=== PATIENT | male | born 1950 | race Caucasian/White ===

== ENCOUNTER 2018-03-15 13:22 | Emergency (ER) | payer MEDICARE ==
[~2018-03-15] VITALS: Ht 167.6 cm; Wt 72.6 kg
[~2018-03-15 13:22] MED LIST: CEPH500 PO; Crutch1 EACH MISC; FLUO10; HYDR1TAB94 PO; IBUP800 PO; QUET25 PO; Ultram50 MG PO
[2018-03-15] MEDS ORDERED: Bactrim Ds Tab1 EACH PO (13:45)
== END 2018-03-15 13:47 | disposition home or self-care (01) ==
LOC: ER 13:22
DX: L02.511 Cutaneous abscess of right hand (principal); L02.512 Cutaneous abscess of left hand; Z88.8 Allergy status to other drugs, medicaments and biological substances; F17.200 Nicotine dependence, unspecified, uncomplicated
CPT/HCPCS: 99282

== ENCOUNTER 2018-11-30 15:08 | Inpatient (IN) | payer MEDICARE, OTHER ==
[~2018-11-30] VITALS: Ht 175.3 cm; Wt 67.9 kg
[~2018-11-30 15:08] MED LIST changes: +Bactrim Ds Tab1 EACH PO
[2018-11-30 15:38] LABS: Hematocrit 35.1 % (37.0-53.0); Hemoglobin 12.2 g/dL (13.5-17.5); Mean Corpuscular HGB 32.9 pg (26.0-34.0); Mean Corpuscular HGB Conc 34.8 g/dL (31.5-36.5); Mean Corpuscular Volume 95 fL (80-100); Mean Platelet Volume 10.1 fL (9.1-12.4); Platelet Count 227 K/mm3 (150-400); RDW Coefficient Variation 11.9 % (11.7-14.2); RDW Standard Deviation 41.6 fL (35.1-46.3); Red Blood Cell Count 3.71 M/mm3 (4.30-5.90)
[2018-11-30 15:50] LABS: Alanine Aminotransfer (ALT/SGP 18 U/L (12-78); Albumin, Blood 2.2 g/dL (3.4-5.0); Albumin/Globulin Ratio 0.4 (0.8-1.8); Alk Phos 78 U/L (50-136); Anion Gap 14 mmol/L (6-16); Aspartate Aminotrans (AST/SGOT 16 U/L (12-37); Bilirubin, Total 0.7 mg/dL (0.1-1.0); Blood Urea Nitrogen 26 mg/dL (8-24); Bun/Creatinine Ratio 24.5 (12.0-20.0); CO2, Blood 18 mmol/L (21-32); Calcium, Blood 8.6 mg/dL (8.5-10.1); Chloride, Blood 99 mmol/L (98-108); Creatinine, Blood 1.06 mg/dL (0.60-1.20); Globulin, Blood 4.9 g/dL (2.2-4.0); Glomerular Filtration Rate >60 (60-); Glucose, Blood 124 mg/dL (70-99); Potassium, Blood 3.2 mmol/L (3.5-5.5); Sodium, Blood 131 mmol/L (136-145); Total Protein, Blood 7.1 g/dL (6.4-8.2)
[2018-11-30 16:09] LABS: BAND PERCENT MAN 27 % (0-8); BASOPHILS PERCENT MAN 0 % (0-2); EOSINOPHILS PERCENT MAN 0 % (0-6); LYMPHOCYTES ABSOLUTE MAN 0.64 K/mm3 (0.84-5.20); LYMPHOCYTES PERCENT MAN 8 % (21-46); METAMYELOCYTE ABSOLUTE MAN 1.04 K/mm3 (0.00-0.00); METAMYELOCYTE PERCENT MAN 13 % (0-0); MONOCYTES PERCENT MAN 5 % (4-13); MYELOCYTE ABSOLUTE MAN 0.08 K/mm3 (0.00-0.00); MYELOCYTE PERCENT MAN 1 % (0-0); NEUTROPHILS ABSOLUTE MAN 5.84 K/mm3 (1.96-9.15); SEG NEUTROPHILS PERCENT MAN 46 % (41-73); TOTAL CELLS COUNTED 100
[2018-11-30 16:40] LABS: International Normalized Ratio 1.2; Prothrombin Time Results 12.2 Sec (9.7-11.5)
[2018-11-30] MEDS ORDERED: IBUP800 PO (18:38)
[2018-12-01 05:20] LABS: Hematocrit 33.5 % (37.0-53.0); Hemoglobin 11.7 g/dL (13.5-17.5); Mean Corpuscular HGB 33.1 pg (26.0-34.0); Mean Corpuscular HGB Conc 34.9 g/dL (31.5-36.5); Mean Corpuscular Volume 95 fL (80-100); Mean Platelet Volume 10.1 fL (9.1-12.4); Platelet Count 236 K/mm3 (150-400); RDW Standard Deviation 41.7 fL (35.1-46.3); Red Blood Cell Count 3.53 M/mm3 (4.30-5.90); White Blood Cell Count 15.39 K/mm3 (4.00-11.30)
[2018-12-01 05:36] LABS: Anion Gap 6 mmol/L (6-16); Blood Urea Nitrogen 22 mg/dL (8-24); Bun/Creatinine Ratio 28.6 (12.0-20.0); CO2, Blood 23 mmol/L (21-32); Calcium, Blood 8.6 mg/dL (8.5-10.1); Chloride, Blood 108 mmol/L (98-108); Creatinine, Blood 0.77 mg/dL (0.60-1.20); Glomerular Filtration Rate >60 (60-); Glucose, Blood 101 mg/dL (70-99); Magnesium, Blood 1.7 mg/dL (1.6-2.4); Potassium, Blood 3.6 mmol/L (3.5-5.5); Sodium, Blood 137 mmol/L (136-145)
[2018-12-01 05:56] LABS: BAND PERCENT MAN 38 % (0-8); BASOPHILS PERCENT MAN 0 % (0-2); EOSINOPHILS PERCENT MAN 0 % (0-6); LYMPHOCYTES ABSOLUTE MAN 0.46 K/mm3 (0.84-5.20); LYMPHOCYTES PERCENT MAN 3 % (21-46); METAMYELOCYTE ABSOLUTE MAN 0.15 K/mm3 (0.00-0.00); METAMYELOCYTE PERCENT MAN 1 % (0-0); MONOCYTES ABSOLUTE MAN 0.46 K/mm3 (0.16-1.47); MONOCYTES PERCENT MAN 3 % (4-13); NEUTROPHILS ABSOLUTE MAN 14.31 K/mm3 (1.96-9.15); SEG NEUTROPHILS PERCENT MAN 55 % (41-73); TOTAL CELLS COUNTED 100
--- NOTE | 2018-12-01 07:23 | NUR ---
clothes in washer, cwa 0, call light in reach, cooperative but excitable, saline locked, 2L via nc, still has loose stool
--- NOTE | 2018-12-01 18:27 | NUR ---
ALERT AND ORIENTED X 3. ON OXYGEN. IV X 2 PATENT. INDEPENDENT IN ROOM. CIWA <8. NOT PRODUCING ANY SPUTUM. DRY COUGH. UNLABORED RESPIRATIONS. BED IN LOW POSITION. CALL LIGHT WITHIN REACH. WILL CONTINUE TO MONITOR.
--- NOTE | 2018-12-02 07:55 | NUR ---
no CWA done due to no symptoms for previous shift, no s/sx during this shift, still focused on things, easily distracted, callight in reach, saline locked, 3L via nc sbar report given to day shift
--- NOTE | 2018-12-02 16:16 | NUR ---
NO ACUTE CHANGES THIS SHIFT. PATIENT ASKED TO SLEEP MOST OF SHIFT BECAUSE HE HAS NOT SLEPT WELL THE LAST FEW DAYS. HE IS COOPERATIVE WITH CARE. STILL COUGHING UP SPUTUM AND BLOOD. PATIENT CALLS APPROPRIATELY FOR HELP. RN DISCUSSED ANTIBIOTIC ADMINISTRATION TIMES WITH HIM. WILL CONTINUE TO MONITOR
--- NOTE | 2018-12-03 03:47 | NUR ---
SUMMARY NO ACUTE CHANGES NOTED THROUGH THE NIGHT. PT REMAINS A&O X4. DENIES SOB/CP. ON ROOM AIR. CONTINUES TO HAVE SCANT AMOUNT OF CROW BLOOD IN SPUTUM AFTER COUGHING. PT WAS GIVEN COUGH MEDICINE PER REQUEST. PT DENIES PAIN. INDEPENDENT IN ROOM. CALL LIGHT IN REACH, [facility]
[2018-12-03 05:04] LABS: BASOPHILS ABSOLUTE AUTO 0.04 K/mm3 (0.00-0.23); BASOPHILS PERCENT AUTO 1 % (0-2); EOSINOPHILS ABSOLUTE AUTO 0.06 K/mm3 (0.00-0.68); EOSINOPHILS PERCENT AUTO 1 % (0-6); Hematocrit 33.8 % (37.0-53.0); Hemoglobin 11.4 g/dL (13.5-17.5); IMMATURE GRAN ABSOLUTE AUTO 0.16 K/mm3 (0.00-0.10); IMMATURE GRAN PERCENT AUTO 2 % (0-1); LYMPHOCYTES ABSOLUTE AUTO 1.73 K/mm3 (0.84-5.20); LYMPHOCYTES PERCENT AUTO 20 % (21-46); MONOCYTES ABSOLUTE AUTO 0.77 K/mm3 (0.16-1.47); MONOCYTES PERCENT AUTO 9 % (4-13); Mean Corpuscular HGB 32.9 pg (26.0-34.0); Mean Corpuscular HGB Conc 33.7 g/dL (31.5-36.5); Mean Corpuscular Volume 97 fL (80-100); NEUTROPHILS PERCENT AUTO 69 % (41-73); Platelet Count 306 K/mm3 (150-400); RDW Coefficient Variation 12.1 % (11.7-14.2); RDW Standard Deviation 43.7 fL (35.1-46.3); Red Blood Cell Count 3.47 M/mm3 (4.30-5.90); White Blood Cell Count 8.76 K/mm3 (4.00-11.30)
[2018-12-03] MEDS ORDERED: AZIT250 PO (11:19)
[2018-12-03] MEDS ORDERED: TAMS.4ER PO (11:20)
[2018-12-03] MEDS ORDERED: NICO21TP TOP (11:20)
[2018-12-03] MEDS ORDERED: Augmentin 875-1 EACH PO (11:21)
[2018-12-03] MEDS ORDERED: Q-Tussin100 MG/5 M PO (11:25)
--- NOTE | 2018-12-03 14:10 | NUR ---
PT DISCHARGED THE PT VERBALIZED UNDERSTANDING OF THE DC INSTRUCTIONS, PT APPEARED TO BE BREATHING EASILY ON RA AT DISCHARGE, THE PT WAS GIVEN A RIDE VIA [facility] OF [facility] TO [facility]ART TO COMPUTER TYPESETTER KEYLINER HIS PERSCRIPTIONS, THEN TO THE MISSION , PT DECLINED A WHEELCHAIR AMBULATED STEADY ON HIS FEET TO THE ER LOBBY TO AWAIT THE TAXI
== END 2018-12-03 14:01 | disposition home or self-care (01) | DRG 871 ==
LOC: ER 15:08 → MEDS 16:21 → ENPENDDIS 12-03 10:57 → MEDS 12-03 14:01
PROVIDERS: Emergency Medicine; ADMIT Hospitalist
DX: A40.3 Sepsis due to Streptococcus pneumoniae (principal); J13 Pneumonia due to Streptococcus pneumoniae; J96.01 Acute respiratory failure with hypoxia; R65.20 Severe sepsis without septic shock; S22.39XA Fracture of one rib, unspecified side, initial encounter for closed fracture; E87.1 Hypo-osmolality and hyponatremia; R04.2 Hemoptysis; E87.2 Acidosis; F17.210 Nicotine dependence, cigarettes, uncomplicated; J44.9 Chronic obstructive pulmonary disease, unspecified; F10.20 Alcohol dependence, uncomplicated; E87.6 Hypokalemia
CPT/HCPCS: 36415; 71046; 71260; 80048; 80053; 83605; 83735; 85025; 85610; 87040; 87186; 94640; 94760; 96361; 96365; 99285-25; J0696; J7030; Q9967

== ENCOUNTER 2018-12-14 18:10 | Inpatient (IN) | payer MEDICARE, OTHER ==
[~2018-12-14] VITALS: Ht 170.2 cm; Wt 68.7 kg
[~2018-12-14 18:10] MED LIST changes: +AZIT250 PO; +Augmentin 875-1 EACH PO; +NICO21TP TOP; +Q-Tussin100 MG/5 M PO; +TAMS.4ER PO
[2018-12-14 18:56] LABS: BASOPHILS ABSOLUTE AUTO 0.03 K/mm3 (0.00-0.23); BASOPHILS PERCENT AUTO 0 % (0-2); EOSINOPHILS ABSOLUTE AUTO 0.01 K/mm3 (0.00-0.68); EOSINOPHILS PERCENT AUTO 0 % (0-6); Hematocrit 35.5 % (37.0-53.0); Hemoglobin 11.9 g/dL (13.5-17.5); IMMATURE GRAN ABSOLUTE AUTO 0.05 K/mm3 (0.00-0.10); IMMATURE GRAN PERCENT AUTO 0 % (0-1); LYMPHOCYTES ABSOLUTE AUTO 1.91 K/mm3 (0.84-5.20); LYMPHOCYTES PERCENT AUTO 13 % (21-46); MONOCYTES PERCENT AUTO 5 % (4-13); Mean Corpuscular HGB 32.2 pg (26.0-34.0); Mean Corpuscular HGB Conc 33.5 g/dL (31.5-36.5); Mean Corpuscular Volume 96 fL (80-100); Mean Platelet Volume 8.6 fL (9.1-12.4); NEUTROPHILS ABSOLUTE AUTO 12.05 K/mm3 (1.96-9.15); NEUTROPHILS PERCENT AUTO 81 % (41-73); Platelet Count 410 K/mm3 (150-400); RDW Coefficient Variation 12.7 % (11.7-14.2); RDW Standard Deviation 45.1 fL (35.1-46.3); Red Blood Cell Count 3.69 M/mm3 (4.30-5.90); White Blood Cell Count 14.85 K/mm3 (4.00-11.30)
[2018-12-14 19:24] LABS: Alanine Aminotransfer (ALT/SGP 16 U/L (12-78); Albumin, Blood 2.6 g/dL (3.4-5.0); Albumin/Globulin Ratio 0.5 (0.8-1.8); Alk Phos 106 U/L (50-136); Anion Gap 8 mmol/L (6-16); Aspartate Aminotrans (AST/SGOT 12 U/L (12-37); Bilirubin, Total 0.4 mg/dL (0.1-1.0); Blood Urea Nitrogen 13 mg/dL (8-24); Bun/Creatinine Ratio 15.6 (12.0-20.0); CO2, Blood 25 mmol/L (21-32); Calcium, Blood 8.5 mg/dL (8.5-10.1); Chloride, Blood 101 mmol/L (98-108); Creatinine, Blood 0.84 mg/dL (0.60-1.20); Glomerular Filtration Rate >60 (60-); Glucose, Blood 94 mg/dL (70-99); Potassium, Blood 3.4 mmol/L (3.5-5.5); Sodium, Blood 134 mmol/L (136-145); Total Protein, Blood 7.6 g/dL (6.4-8.2)
[2018-12-14 19:52] LABS: Influenza A Negative (NEGATIVE); Influenza B Negative (NEGATIVE)
[2018-12-14] MEDS ORDERED: TAMS.4ER PO (22:23)
[2018-12-14] MEDS ORDERED: LOPE2C PO (22:25)
[2018-12-15 04:43] LABS: BASOPHILS ABSOLUTE AUTO 0.01 K/mm3 (0.00-0.23); BASOPHILS PERCENT AUTO 0 % (0-2); EOSINOPHILS PERCENT AUTO 0 % (0-6); Hematocrit 33.7 % (37.0-53.0); Hemoglobin 11.1 g/dL (13.5-17.5); IMMATURE GRAN ABSOLUTE AUTO 0.08 K/mm3 (0.00-0.10); IMMATURE GRAN PERCENT AUTO 1 % (0-1); LYMPHOCYTES ABSOLUTE AUTO 0.94 K/mm3 (0.84-5.20); LYMPHOCYTES PERCENT AUTO 7 % (21-46); MONOCYTES PERCENT AUTO 2 % (4-13); Mean Corpuscular HGB 32.3 pg (26.0-34.0); Mean Corpuscular HGB Conc 32.9 g/dL (31.5-36.5); Mean Corpuscular Volume 98 fL (80-100); Mean Platelet Volume 8.8 fL (9.1-12.4); NEUTROPHILS ABSOLUTE AUTO 11.64 K/mm3 (1.96-9.15); NEUTROPHILS PERCENT AUTO 90 % (41-73); Platelet Count 353 K/mm3 (150-400); RDW Coefficient Variation 12.8 % (11.7-14.2); RDW Standard Deviation 45.7 fL (35.1-46.3); Red Blood Cell Count 3.44 M/mm3 (4.30-5.90); White Blood Cell Count 12.97 K/mm3 (4.00-11.30)
--- NOTE | 2018-12-15 06:10 | NUR ---
SHIFT SUMMARY PATIENT ADMITTED FROM THE ER AND WAS ABLE TO TRANSFER SELF FROM THE GURNEY TO THE BED WITH SBA. PATIENT PLEASENT THROUGHOUT THE NIGHT BUT HAS REFUSED SOME CARE. PATIENT APPEARED TO SLEEP WELL LAST NIGHT. IV FLUIDS RUNNING PER ORDERS, ABX GIVEN PER EMAR. CIWA'S CHARTED. PATIENT EXPRESSING DESIRE TO STOP DRINKING. STATING THAT HE WOULD LIKE TO GO UP TO [facility] IN VIKING AFTER GETTING OUT OF THE HOSPITAL. PATIENT CURRENTLY SITTING UP IN BED WATCHING TV AND EATING A SNACK. WILL CONTINUE TO MONITOR PATIENT AND REPORT TO ONCOMING RN.
[2018-12-15 06:24] LABS: Alanine Aminotransfer (ALT/SGP 11 U/L (12-78); Albumin, Blood 2.2 g/dL (3.4-5.0); Albumin/Globulin Ratio 0.5 (0.8-1.8); Alk Phos 101 U/L (50-136); Aspartate Aminotrans (AST/SGOT 11 U/L (12-37); Bilirubin, Total 0.3 mg/dL (0.1-1.0); Blood Urea Nitrogen 14 mg/dL (8-24); Bun/Creatinine Ratio 19.1 (12.0-20.0); CO2, Blood 23 mmol/L (21-32); Calcium, Blood 8.1 mg/dL (8.5-10.1); Chloride, Blood 113 mmol/L (98-108); Creatinine, Blood 0.73 mg/dL (0.60-1.20); Globulin, Blood 4.7 g/dL (2.2-4.0); Glomerular Filtration Rate >60 (60-); Glucose, Blood 194 mg/dL (70-99); Potassium, Blood 4.1 mmol/L (3.5-5.5); Total Protein, Blood 6.9 g/dL (6.4-8.2)
[2018-12-15 06:25] LABS: Anion Gap 8 mmol/L (6-16); Sodium, Blood 144 mmol/L (136-145)
--- NOTE | 2018-12-15 18:15 | NUR ---
PT. SITTING IN BED REFUSED DINNER R/T NAUSEA, AFTER IV ZOFRAN GIVEN PT. WAS ABLE TO EAT SOME JELLO. PT. HAS BEEN GIVEN SEVERAL FORMS OF BOWEL TREATMENT BUT HAS STILL NOT HAD A BM. IF PT. IS UNABLE TO HAVE A BM TONIGHT WE WILL TRY AN ENEMA TOMORROW. ENCOURAGED PT. TO GET UP AND AMBULATE THIS EVENING SHE HAS SLEPT THE BETTER PART OF THE DAY.
--- NOTE | 2018-12-15 18:32 | NUR ---
PT. ARRIVED TO FLOOR FROM [facility]16 AT 1442 TODAY. NO NOTEABLE CHANGES FOR PT. DID GET HIS IMMODIUM ORDERED AND A NICOTINE PATCH WELL. DENIES PAIN.
[2018-12-16 05:01] LABS: BASOPHILS ABSOLUTE AUTO 0.02 K/mm3 (0.00-0.23); BASOPHILS PERCENT AUTO 0 % (0-2); EOSINOPHILS ABSOLUTE AUTO 0.04 K/mm3 (0.00-0.68); EOSINOPHILS PERCENT AUTO 0 % (0-6); Hematocrit 32.8 % (37.0-53.0); Hemoglobin 10.7 g/dL (13.5-17.5); IMMATURE GRAN ABSOLUTE AUTO 0.03 K/mm3 (0.00-0.10); IMMATURE GRAN PERCENT AUTO 0 % (0-1); LYMPHOCYTES ABSOLUTE AUTO 3.14 K/mm3 (0.84-5.20); LYMPHOCYTES PERCENT AUTO 33 % (21-46); MONOCYTES ABSOLUTE AUTO 0.66 K/mm3 (0.16-1.47); MONOCYTES PERCENT AUTO 7 % (4-13); Mean Corpuscular HGB 32.1 pg (26.0-34.0); Mean Corpuscular HGB Conc 32.6 g/dL (31.5-36.5); Mean Corpuscular Volume 99 fL (80-100); Mean Platelet Volume 9.1 fL (9.1-12.4); NEUTROPHILS ABSOLUTE AUTO 5.54 K/mm3 (1.96-9.15); NEUTROPHILS PERCENT AUTO 59 % (41-73); Platelet Count 338 K/mm3 (150-400); RDW Standard Deviation 46.3 fL (35.1-46.3); Red Blood Cell Count 3.33 M/mm3 (4.30-5.90); White Blood Cell Count 9.43 K/mm3 (4.00-11.30)
[2018-12-16 05:44] LABS: Alanine Aminotransfer (ALT/SGP 19 U/L (12-78); Albumin, Blood 2.2 g/dL (3.4-5.0); Albumin/Globulin Ratio 0.5 (0.8-1.8); Alk Phos 88 U/L (50-136); Anion Gap 6 mmol/L (6-16); Aspartate Aminotrans (AST/SGOT 18 U/L (12-37); Bilirubin, Total 0.3 mg/dL (0.1-1.0); Blood Urea Nitrogen 12 mg/dL (8-24); CO2, Blood 25 mmol/L (21-32); Calcium, Blood 8.4 mg/dL (8.5-10.1); Chloride, Blood 112 mmol/L (98-108); Creatinine, Blood 0.75 mg/dL (0.60-1.20); Globulin, Blood 4.2 g/dL (2.2-4.0); Glomerular Filtration Rate >60 (60-); Glucose, Blood 84 mg/dL (70-99); Magnesium, Blood 1.9 mg/dL (1.6-2.4); Sodium, Blood 143 mmol/L (136-145); Total Protein, Blood 6.4 g/dL (6.4-8.2)
--- NOTE | 2018-12-16 07:21 | NUR ---
12/16/18 0630 IV CHANGED PER PT REQUEST. MEDS GIVEN FOR COUGH AND DIARRHEA. VITALS REMAIN STABLE.
--- NOTE | 2018-12-16 18:05 | NUR ---
SHIFT SUMMARY PATIENT PLEASANT. NO ACUTE CONCERNS AT THIS TIME. HE STATES THAT HE WANTS TO GET UP TO THE REHABILITATION FACILITY IN [place] FOR ALCOHOL REHAB. PATIENT IS INDEPENDENT IN THE ROOM. USES THE CALL LIGHT APPROPRIATELY. USES THE URINAL. NO CONCERNS AT THIS TIME. HE HAS BEEN CHANGED TO ANNABELLE [facility]IRKLAND SCHEDULED TID.
--- NOTE | 2018-12-17 05:28 | NUR ---
VSS, AFEBRILE, A/O, COUGHING, 20G L FA, R/A, INDEPENDENT. PMHX: PNX, PTSD, ETOH ABUSE, HOMELESS. IVABX, SL, SLEPT WELL BUT WOKE VERY EARLY. PLEASANT AND COOPERATIVE.
[2018-12-17] MEDS ORDERED: ACETAMINOPHEN500 MG PO (14:27)
[2018-12-17] MEDS ORDERED: BENZ100A PO (14:27)
[2018-12-17] MEDS ORDERED: LEVO750 PO (14:28)
--- NOTE | 2018-12-17 15:35 | NUR ---
REVIEW D'C W/PATIENT. AWARE TO [facility] AT [facility], [place] [facility]. 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 STS WILL STAY A MOTEL TONIGHT, THEN GO TO [facility] TOMORROW FOR ID AND SEE ABOUT GOING TO [place] AT [facility]. STS WILL PROBABLY GET PCP IN [place] IF NEEDED. ANSWER ALL QUESTIONS. IN W/C W/ESCORT.
== END 2018-12-17 15:37 | disposition home or self-care (01) | DRG 871 ==
LOC: ER 18:10 → PCU 20:48 → MEDS 20:48 → PCU 22:05 → MEDS 12-15 14:22 → ENPENDDIS 12-17 12:11 → MEDS 12-17 15:37
PROVIDERS: Emergency Medicine; Internal Medicine; ADMIT Hospitalist
DX: A41.9 Sepsis, unspecified organism (principal); J15.4 Pneumonia due to other streptococci; E87.1 Hypo-osmolality and hyponatremia; J44.1 Chronic obstructive pulmonary disease with (acute) exacerbation; R65.20 Severe sepsis without septic shock; F17.210 Nicotine dependence, cigarettes, uncomplicated; Z59.0 Homelessness; F10.10 Alcohol abuse, uncomplicated; Z87.81 Personal history of (healed) traumatic fracture; Z87.01 Personal history of pneumonia (recurrent); R09.02 Hypoxemia
CPT/HCPCS: 36415; 71045; 80053; 83605; 83735; 84145; 85025; 87040; 87804; 93005; 93010; 94644; 96361; 96365; 96366; 96367; 96375; 99285-25; J1100; J1650; J2543; J3370; J7030; J7050